=== PATIENT | male | born 1955 | race Caucasian/White ===

== ENCOUNTER → 2018-11-28 | Outpatient (CLI) | payer BC ==
--- NOTE | 2018-11-28 11:39 | RAD ---
DUPLEX SONOGRAPHY OF THE PERIPHERAL ARTERIAL SYSTEM OF THE LEFT LOWER EXTREMITY Clinical indications: Claudication. Findings: Duplex sonography of the peripheral arterial system of both lower extremities including gutiérrez scale and color flow and spectral waveform analysis was performed.Triphasic waveforms are seen. No occlusive disease is seen. No significant stenosis is identified. The measurements were performed using the NASCET criteria. Peak systolic flow velocities are as follows: Left leg: common femoral artery- 115 cm/sec, profunda femoral artery -49 cm/sec, proximal superficial femoral artery- 92cm/sec, mid superficial femoral artery- 84 cm/sec, distal superficial femoral artery- 53 cm/sec, popliteal artery -56 cm/sec, proximal posterior tibial artery -60 cm/sec, distal posterior tibial artery- 76 cm/sec, peroneal artery -38 cm/sec, anterior tibial artery -69 cm/sec, dorsalis pedis artery- 79 cm/sec. Impression: No significant peripheral arterial vascular disease of the left lower extremity is seen by duplex sonographic evaluation. Electronically signed by: Kevin Rutledge MD (11/28/2018 11:36 AM) [facility]
== END | disposition home or self-care (01) ==
LOC: PMG 10:43
PROVIDERS: ATTEND Family Medicine
DX: I70.213 Atherosclerosis of native arteries of extremities with intermittent claudication, bilateral legs (principal); R25.2 Cramp and spasm
CPT/HCPCS: 93926